=== PATIENT | female | born 2000 | race Caucasian/White ===

== ENCOUNTER 2018-11-07 21:15 | Emergency (ER) | payer SELFPAY ==
[~2018-11-07] VITALS: Ht 157.5 cm; Wt 88.6 kg
[2018-11-07 21:51] VITALS: BP 129/96
[2018-11-07] MEDS ORDERED: ACETAMINOPHEN 325 MG TABLET PO ONE (22:00)
== END 2018-11-07 23:37 | disposition left against medical advice (07) ==
LOC: EMS 21:17
DX: R50.9 Fever, unspecified (principal); Z53.21 Procedure and treatment not carried out due to patient leaving prior to being seen by health care provider